=== PATIENT | female | born 1955 | race Caucasian/White ===

== ENCOUNTER 2023-07-01 14:37 | Inpatient (IN) | payer MEDICARE, OTHER ==
[~2023-07-01] VITALS: Ht 162.6 cm; Wt 115.7 kg
[2023-07-01] MEDS ORDERED: FLUT10.62 IH (16:00)
[2023-07-01] MEDS ORDERED: ALBU18HF2 IH (16:00)
[2023-07-01] MEDS ORDERED: BENA20TA9 PO (16:00)
[2023-07-01] MEDS ORDERED: METF-440 PO (16:00)
[2023-07-01] MEDS ORDERED: ZIPR20CA2 (16:00)
[2023-07-01] MEDS ORDERED: CARV6.25 PO (16:00)
[2023-07-01 17:48] VITALS: BP 129/56; TEMP 98.3; O2SAT 94
[2023-07-01] MEDS ORDERED: ZOLPIDEM 5 MG TABLET PO PRN (18:00)
[2023-07-01] MEDS ORDERED: ACETAMINOPHEN 325 MG TABLET PO PRN (18:00)
[2023-07-01] MEDS ORDERED: BLOOD SUGAR DIAGNOSTIC 1 EACH STRIP VI ONE (18:00)
[2023-07-01] MEDS ORDERED: MAG HYDROX/AL HYDROX/SIMETH 30 ML LIQUID UDC PO PRN (18:00)
[2023-07-01] MEDS ORDERED: MAGNESIUM HYDROXIDE 30 ML LIQUID UDC PO PRN (18:00)
[2023-07-01] MEDS: METFORMIN HCL 500 MG TABLET PO SCH (18:09)
[2023-07-01] MEDS: CARVEDILOL 6.25 MG TABLET PO SCH (18:10)
[2023-07-01] MEDS ORDERED: DEXTROSE 50% 50 ML DISP.SYRIN IV PRN (18:30)
[2023-07-01] MEDS: BLOOD SUGAR DIAGNOSTIC 1 EACH STRIP VI SCH (20:06)
[2023-07-01 20:18] VITALS: BP 128/65; TEMP 98.4; O2SAT 94
[2023-07-01] MEDS: LORAZEPAM 0.5 MG TABLET PO PRN (21:34)
[2023-07-02] MEDS: BLOOD SUGAR DIAGNOSTIC 1 EACH STRIP VI SCH ×4 (06:45→20:32)
[2023-07-02 07:20] LABS: BASOPHILS % (AUTO) 0.4 % (0.0-2.0); EOSINOPHILS # (AUTO) 0.1 K/uL (0.0-0.7); HEMATOCRIT 34.5 % (31.2-41.9); HEMOGLOBIN 11.1 g/dL (10.9-14.3); LYMPHOCYTES # (AUTO) 1.7 K/uL (0.8-4.8); MEAN CORPUSCULAR HEMOGLOBIN 28.7 uug (24.7-32.8); MEAN CORPUSCULAR HGB CONC 32 g/dL (32.3-35.6); MEAN CORPUSCULAR VOLUME 89.4 fL (75.5-95.3); MONOCYTES # (AUTO) 0.5 K/uL (0.1-1.30); MONOCYTES % (AUTO) 7.4 % (0.0-11.0); NEUTROPHILS # (AUTO) 4.4 K/uL (1.8-8.9); NEUTROPHILS % (AUTO) 65.2 % (38.5-71.5); PLATELET COUNT (AUTO) 275 K/uL (179-408); RED BLOOD CELL COUNT(AUTO) 3.86 MIL/uL (3.63-4.92); RED CELL DISTRIBUTION WIDTH 14.3 % (12.3-17.7); WHITE BLOOD COUNT (AUTO) 6.8 K/uL (3.8-11.8)
[2023-07-02 07:32] LABS: DIFFERENTIAL COMMENT 1
[2023-07-02] MEDS: CARVEDILOL 6.25 MG TABLET PO SCH ×2 (08:52→17:00)
[2023-07-02] MEDS: METFORMIN HCL 500 MG TABLET PO SCH ×2 (08:52→17:25)
[2023-07-02] MEDS: BENAZEPRIL HCL 20 MG TABLET PO SCH (08:52)
[2023-07-02 10:02] LABS: CALCIUM 8.6 mg/dL (8.5-10.1); CREATININE 0.6 mg/dL (0.6-1.3); POTASSIUM 4.2 mmol/L (3.5-5.1)
[2023-07-02] MEDS: ZIPRASIDONE 20 MG CAPSULE PO SCH ×2 (10:29→20:28)
[2023-07-02 10:46] VITALS: BP 118/64; TEMP 98.2; O2SAT 99
[2023-07-02 15:05] VITALS: O2SAT 98
[2023-07-02] MEDS: ALBUTEROL SULFATE 2.5 MG/3 ML NEBU NEB PRN (15:05)
[2023-07-02 15:18] VITALS: O2SAT 100
[2023-07-02 16:57] VITALS: BP 103/82; TEMP 98; O2SAT 99
[2023-07-02] MEDS: PROTEIN SUPPLEMENT (PROSTAT) 30 ML LIQUID PO SCH (17:25)
[2023-07-02 21:12] VITALS: BP 139/87; TEMP 98; O2SAT 96
[2023-07-03] MEDS: BLOOD SUGAR DIAGNOSTIC 1 EACH STRIP VI SCH ×4 (06:57→20:27)
[2023-07-03 08:00] VITALS: BP 143/77; TEMP 98.3; O2SAT 97
[2023-07-03] MEDS: METFORMIN HCL 500 MG TABLET PO SCH ×2 (08:37→16:37)
[2023-07-03] MEDS: BENAZEPRIL HCL 20 MG TABLET PO SCH (08:37)
[2023-07-03] MEDS: CARVEDILOL 6.25 MG TABLET PO SCH ×2 (08:37→16:34)
[2023-07-03] MEDS: ZIPRASIDONE 20 MG CAPSULE PO SCH ×2 (08:38→20:31)
[2023-07-03] MEDS: PROTEIN SUPPLEMENT (PROSTAT) 30 ML LIQUID PO SCH ×2 (08:39→16:38)
[2023-07-03 15:45] VITALS: BP 139/70; TEMP 97.6; O2SAT 95
[2023-07-03 15:53] VITALS: O2SAT 100
[2023-07-03] MEDS: INSULIN REGULAR, HUMAN 300 UNIT/3 ML VIAL SQ PRN (20:28)
[2023-07-03 21:16] VITALS: BP 128/55; TEMP 98.2; O2SAT 96
[2023-07-04] MEDS: BLOOD SUGAR DIAGNOSTIC 1 EACH STRIP VI SCH ×4 (06:33→20:54)
[2023-07-04 07:51] VITALS: BP 140/75; TEMP 98.1; O2SAT 99
[2023-07-04] MEDS: ZIPRASIDONE 20 MG CAPSULE PO SCH ×2 (08:26→21:02)
[2023-07-04] MEDS: CARVEDILOL 6.25 MG TABLET PO SCH ×2 (08:27→17:17)
[2023-07-04] MEDS: METFORMIN HCL 500 MG TABLET PO SCH ×2 (08:29→17:17)
[2023-07-04] MEDS: PROTEIN SUPPLEMENT (PROSTAT) 30 ML LIQUID PO SCH ×2 (08:29→17:15)
[2023-07-04] MEDS: BENAZEPRIL HCL 20 MG TABLET PO SCH (08:29)
[2023-07-04 09:41] VITALS: O2SAT 98
[2023-07-04] MEDS: ALBUTEROL SULFATE 2.5 MG/3 ML NEBU NEB PRN (09:41)
[2023-07-04 09:51] VITALS: O2SAT 99
[2023-07-04] MEDS: NEOMY/BACITRAC/POLYMI OINT 28.35 GM TUBE TOP SCH ×2 (15:56→21:02)
[2023-07-04 16:29] VITALS: BP 140/85; TEMP 98; O2SAT 99
[2023-07-04 20:00] VITALS: BP 108/58; TEMP 97.7; O2SAT 99
[2023-07-04] MEDS: LORAZEPAM 0.5 MG TABLET PO PRN (21:31)
[2023-07-05] MEDS: BLOOD SUGAR DIAGNOSTIC 1 EACH STRIP VI SCH ×4 (07:30→21:00)
[2023-07-05 08:02] VITALS: BP 161/79; TEMP 98.1; O2SAT 98
[2023-07-05] MEDS: ZIPRASIDONE 20 MG CAPSULE PO SCH ×2 (08:32→20:41)
[2023-07-05] MEDS: METFORMIN HCL 500 MG TABLET PO SCH ×2 (08:33→16:26)
[2023-07-05] MEDS: BENAZEPRIL HCL 20 MG TABLET PO SCH (08:33)
[2023-07-05] MEDS: CARVEDILOL 6.25 MG TABLET PO SCH ×2 (08:34→16:27)
[2023-07-05] MEDS: NEOMY/BACITRAC/POLYMI OINT 28.35 GM TUBE TOP SCH ×2 (08:35→20:42)
[2023-07-05] MEDS: PROTEIN SUPPLEMENT (PROSTAT) 30 ML LIQUID PO SCH ×2 (08:36→16:28)
[2023-07-05 16:12] VITALS: BP 116/62; TEMP 98; O2SAT 99
[2023-07-05 19:47] VITALS: BP 129/63; TEMP 98.1; O2SAT 99
[2023-07-05] MEDS: LORAZEPAM 0.5 MG TABLET PO PRN (20:47)
[2023-07-06] MEDS: BLOOD SUGAR DIAGNOSTIC 1 EACH STRIP VI SCH ×4 (07:30→20:28)
[2023-07-06 07:41] VITALS: BP 150/84; TEMP 97.6; O2SAT 95
[2023-07-06] MEDS: CARVEDILOL 6.25 MG TABLET PO SCH ×2 (08:37→16:27)
[2023-07-06] MEDS: BENAZEPRIL HCL 20 MG TABLET PO SCH (08:37)
[2023-07-06] MEDS: METFORMIN HCL 500 MG TABLET PO SCH ×2 (08:37→16:29)
[2023-07-06] MEDS: ZIPRASIDONE 20 MG CAPSULE PO SCH ×2 (08:37→20:22)
[2023-07-06] MEDS: PROTEIN SUPPLEMENT (PROSTAT) 30 ML LIQUID PO SCH ×2 (08:38→16:29)
[2023-07-06] MEDS: NEOMY/BACITRAC/POLYMI OINT 28.35 GM TUBE TOP SCH ×2 (08:39→20:22)
[2023-07-06 15:00] VITALS: BP 116/53; TEMP 98; O2SAT 94
[2023-07-06 20:14] VITALS: BP 108/60; TEMP 97.8; O2SAT 96
[2023-07-07] MEDS: BLOOD SUGAR DIAGNOSTIC 1 EACH STRIP VI SCH ×4 (06:23→20:34)
[2023-07-07 07:30] VITALS: BP 143/65; TEMP 98.2; O2SAT 96
[2023-07-07] MEDS: INSULIN REGULAR, HUMAN 300 UNIT/3 ML VIAL SQ PRN (08:05)
[2023-07-07] MEDS: METFORMIN HCL 500 MG TABLET PO SCH (08:12)
[2023-07-07] MEDS: BENAZEPRIL HCL 20 MG TABLET PO SCH (08:12)
[2023-07-07] MEDS: CARVEDILOL 6.25 MG TABLET PO SCH ×2 (08:13→17:18)
[2023-07-07] MEDS: NEOMY/BACITRAC/POLYMI OINT 28.35 GM TUBE TOP SCH ×2 (08:13→20:34)
[2023-07-07] MEDS: PROTEIN SUPPLEMENT (PROSTAT) 30 ML LIQUID PO SCH ×2 (08:13→16:09)
[2023-07-07] MEDS: ZIPRASIDONE 20 MG CAPSULE PO SCH ×2 (08:13→20:34)
[2023-07-07 10:15] VITALS: O2SAT 97
[2023-07-07] MEDS: ALBUTEROL SULFATE 2.5 MG/3 ML NEBU NEB PRN (10:15)
[2023-07-07 10:30] VITALS: O2SAT 99
[2023-07-07 15:30] VITALS: BP 120/64; TEMP 98.2; O2SAT 98
[2023-07-07 16:18] LABS: *BILIRUBIN,URIN NEGATIVE (NEGATIVE); *BLOOD, URINE NEGATIVE (NEGATIVE); *CLARITY,URINE CLEAR (CLEAR); *COLOR,URINE YELLOW (YELLOW); *KETONES,URINE NEGATIVE (NEGATIVE); *PROTEIN,URINE NEGATIVE (NEGATIVE); *UROBILINOGEN,URINE 0.2 E.U./dl (NORMAL); LEUKOCYTE ESTERASE ,URINE TRACE (NEGATIVE); NITRITE, URINE NEGATIVE (NEGATIVE); RBC,URINE 0-3 /HPF (0-3); UGLUCOSE NEGATIVE (NEGATIVE)
[2023-07-07] MEDS: PIOGLITAZONE HCL 15 MG TABLET PO SCH (17:18)
[2023-07-07] MEDS: METFORMIN HCL 850 MG TABLET PO SCH (17:18)
[2023-07-07 19:57] VITALS: BP 122/61; TEMP 98.2; O2SAT 96
[2023-07-08] MEDS: BLOOD SUGAR DIAGNOSTIC 1 EACH STRIP VI SCH ×2 (06:56→11:42)
[2023-07-08 07:30] VITALS: BP 119/55; TEMP 97.8; O2SAT 97
[2023-07-08] MEDS: NEOMY/BACITRAC/POLYMI OINT 28.35 GM TUBE TOP SCH ×2 (08:11→20:34)
[2023-07-08] MEDS: BENAZEPRIL HCL 20 MG TABLET PO SCH (08:11)
[2023-07-08] MEDS: METFORMIN HCL 850 MG TABLET PO SCH ×3 (08:11→17:00)
[2023-07-08] MEDS: PIOGLITAZONE HCL 15 MG TABLET PO SCH ×3 (08:11→17:00)
[2023-07-08] MEDS: ZIPRASIDONE 20 MG CAPSULE PO SCH ×2 (08:11→20:33)
[2023-07-08] MEDS: CARVEDILOL 6.25 MG TABLET PO SCH ×2 (08:12→16:55)
[2023-07-08] MEDS: PROTEIN SUPPLEMENT (PROSTAT) 30 ML LIQUID PO SCH ×2 (08:12→16:55)
[2023-07-08] MEDS ORDERED: ZIPRASIDONE 20 MG CAPSULE PO ONE (09:00)
[2023-07-08 15:31] VITALS: O2SAT 98
[2023-07-08] MEDS: ALBUTEROL SULFATE 2.5 MG/3 ML NEBU NEB PRN (15:31)
[2023-07-08 15:45] VITALS: O2SAT 99
[2023-07-08 16:00] VITALS: BP 122/56; TEMP 97.5; O2SAT 96
[2023-07-08 20:41] VITALS: BP 114/71; TEMP 98.4; O2SAT 98
[2023-07-09] VITALS (7 sets, daily range): BP systolic 100–121; BP diastolic 44–66; TEMP 98.4; O2SAT 93–99
[2023-07-09] MEDS: ALBUTEROL SULFATE 2.5 MG/3 ML NEBU NEB PRN ×2 (08:05→19:42)
[2023-07-09] MEDS: METFORMIN HCL 850 MG TABLET PO SCH ×3 (08:52→17:08)
[2023-07-09] MEDS: PIOGLITAZONE HCL 15 MG TABLET PO SCH ×3 (08:53→17:09)
[2023-07-09] MEDS: CARVEDILOL 6.25 MG TABLET PO SCH ×2 (08:53→17:09)
[2023-07-09] MEDS: ZIPRASIDONE 20 MG CAPSULE PO SCH ×3 (08:53→20:51)
[2023-07-09] MEDS: BENAZEPRIL HCL 20 MG TABLET PO SCH (08:54)
[2023-07-09] MEDS: PROTEIN SUPPLEMENT (PROSTAT) 30 ML LIQUID PO SCH ×2 (08:54→17:10)
[2023-07-09] MEDS: NEOMY/BACITRAC/POLYMI OINT 28.35 GM TUBE TOP SCH ×2 (08:55→20:51)
[2023-07-10] MEDS: ALBUTEROL SULFATE 2.5 MG/3 ML NEBU NEB PRN (07:26)
[2023-07-10 07:27] VITALS: O2SAT 96
[2023-07-10 07:42] VITALS: O2SAT 100
[2023-07-10 07:53] VITALS: BP 114/61; TEMP 97.5; O2SAT 95
[2023-07-10] MEDS: METFORMIN HCL 850 MG TABLET PO SCH ×3 (08:17→16:15)
[2023-07-10] MEDS: NEOMY/BACITRAC/POLYMI OINT 28.35 GM TUBE TOP SCH ×2 (08:17→20:40)
[2023-07-10] MEDS: PIOGLITAZONE HCL 15 MG TABLET PO SCH ×3 (08:17→16:16)
[2023-07-10] MEDS: ZIPRASIDONE 20 MG CAPSULE PO SCH ×2 (08:18→20:40)
[2023-07-10] MEDS: CARVEDILOL 6.25 MG TABLET PO SCH ×2 (08:20→16:16)
[2023-07-10] MEDS: PROTEIN SUPPLEMENT (PROSTAT) 30 ML LIQUID PO SCH ×2 (08:41→16:17)
[2023-07-10 15:27] VITALS: BP 120/60; TEMP 97.9; O2SAT 96
[2023-07-10 19:49] VITALS: BP 131/65; TEMP 98; O2SAT 98
[2023-07-11 07:48] VITALS: BP 135/78; TEMP 98.4; O2SAT 96
[2023-07-11] MEDS: PIOGLITAZONE HCL 15 MG TABLET PO SCH ×3 (08:35→17:14)
[2023-07-11] MEDS: ZIPRASIDONE 20 MG CAPSULE PO SCH ×2 (08:35→20:45)
[2023-07-11] MEDS: NEOMY/BACITRAC/POLYMI OINT 28.35 GM TUBE TOP SCH ×2 (08:36→21:00)
[2023-07-11] MEDS: METFORMIN HCL 850 MG TABLET PO SCH ×3 (08:36→17:14)
[2023-07-11] MEDS: CARVEDILOL 6.25 MG TABLET PO SCH ×2 (08:37→17:15)
[2023-07-11] MEDS: PROTEIN SUPPLEMENT (PROSTAT) 30 ML LIQUID PO SCH ×2 (08:42→17:00)
[2023-07-11 10:22] VITALS: O2SAT 97
[2023-07-11] MEDS: ALBUTEROL SULFATE 2.5 MG/3 ML NEBU NEB PRN (10:22)
[2023-07-11 10:32] VITALS: O2SAT 99
[2023-07-11 15:23] VITALS: BP 125/71; TEMP 98.4; O2SAT 96
[2023-07-11] MEDS: GUAIFENESIN SUGAR FREE 100 MG/5 ML UDC PO PRN ×2 (15:43→20:45)
[2023-07-11 20:00] VITALS: BP 131/60; TEMP 97.6; O2SAT 92
[2023-07-11] MEDS: LORAZEPAM 0.5 MG TABLET PO PRN (22:12)
[2023-07-12] MEDS: PANTOPRAZOLE SODIUM 40 MG TABLET.DR PO SCH (06:35)
[2023-07-12 08:42] VITALS: BP 133/69; TEMP 97.9; O2SAT 98
[2023-07-12] MEDS: ZIPRASIDONE 20 MG CAPSULE PO SCH ×2 (08:48→21:06)
[2023-07-12] MEDS: CARVEDILOL 6.25 MG TABLET PO SCH ×2 (08:48→17:26)
[2023-07-12] MEDS: METFORMIN HCL 850 MG TABLET PO SCH ×3 (08:48→17:26)
[2023-07-12] MEDS: PIOGLITAZONE HCL 15 MG TABLET PO SCH ×3 (08:48→17:26)
[2023-07-12] MEDS: PROTEIN SUPPLEMENT (PROSTAT) 30 ML LIQUID PO SCH ×2 (08:50→17:31)
[2023-07-12] MEDS: NEOMY/BACITRAC/POLYMI OINT 28.35 GM TUBE TOP SCH ×2 (08:51→21:10)
[2023-07-12 16:20] VITALS: BP 151/81; TEMP 98; O2SAT 98
[2023-07-12] MEDS: GUAIFENESIN SUGAR FREE 100 MG/5 ML UDC PO PRN ×2 (17:26→21:06)
[2023-07-12 19:54] VITALS: BP 109/63; TEMP 98.2; O2SAT 97
[2023-07-12] MEDS: LORAZEPAM 0.5 MG TABLET PO PRN (22:44)
[2023-07-13] MEDS: PANTOPRAZOLE SODIUM 40 MG TABLET.DR PO SCH (06:38)
[2023-07-13 07:50] VITALS: BP 130/69; TEMP 98.3; O2SAT 98
[2023-07-13] MEDS: ZIPRASIDONE 20 MG CAPSULE PO SCH ×2 (08:50→20:31)
[2023-07-13] MEDS: NEOMY/BACITRAC/POLYMI OINT 28.35 GM TUBE TOP SCH ×2 (08:50→20:30)
[2023-07-13] MEDS: PIOGLITAZONE HCL 15 MG TABLET PO SCH ×3 (08:51→17:05)
[2023-07-13] MEDS: CARVEDILOL 6.25 MG TABLET PO SCH ×2 (08:51→16:36)
[2023-07-13] MEDS: METFORMIN HCL 850 MG TABLET PO SCH ×3 (08:52→17:05)
[2023-07-13] MEDS: PROTEIN SUPPLEMENT (PROSTAT) 30 ML LIQUID PO SCH ×2 (08:52→16:31)
[2023-07-13 16:18] VITALS: BP 117/57; TEMP 98; O2SAT 99
[2023-07-13 19:45] VITALS: BP 128/62; TEMP 98.2; O2SAT 98
[2023-07-14] MEDS: PANTOPRAZOLE SODIUM 40 MG TABLET.DR PO SCH (06:11)
[2023-07-14 07:52] VITALS: BP 114/61; TEMP 98.4; O2SAT 100
[2023-07-14] MEDS: CARVEDILOL 6.25 MG TABLET PO SCH ×2 (08:11→16:46)
[2023-07-14] MEDS: PROTEIN SUPPLEMENT (PROSTAT) 30 ML LIQUID PO SCH ×2 (08:11→16:48)
[2023-07-14] MEDS: METFORMIN HCL 850 MG TABLET PO SCH ×3 (08:11→17:28)
[2023-07-14] MEDS: NEOMY/BACITRAC/POLYMI OINT 28.35 GM TUBE TOP SCH ×2 (08:11→20:38)
[2023-07-14] MEDS: ZIPRASIDONE 20 MG CAPSULE PO SCH ×2 (08:11→20:38)
[2023-07-14] MEDS: PIOGLITAZONE HCL 15 MG TABLET PO SCH ×3 (08:11→17:28)
[2023-07-14 15:49] VITALS: BP 108/51; TEMP 98; O2SAT 96
[2023-07-14 20:03] VITALS: BP 111/56; TEMP 98.2; O2SAT 98
[2023-07-15] MEDS: PANTOPRAZOLE SODIUM 40 MG TABLET.DR PO SCH (07:33)
[2023-07-15 07:47] VITALS: BP 131/61; TEMP 98.2; O2SAT 99
[2023-07-15] MEDS: ZIPRASIDONE 20 MG CAPSULE PO SCH (08:54)
[2023-07-15] MEDS: PIOGLITAZONE HCL 15 MG TABLET PO SCH ×2 (08:54→12:54)
[2023-07-15] MEDS: METFORMIN HCL 850 MG TABLET PO SCH ×2 (08:55→12:54)
[2023-07-15] MEDS: CARVEDILOL 6.25 MG TABLET PO SCH (08:56)
[2023-07-15] MEDS: PROTEIN SUPPLEMENT (PROSTAT) 30 ML LIQUID PO SCH (08:58)
[2023-07-15] MEDS: NEOMY/BACITRAC/POLYMI OINT 28.35 GM TUBE TOP SCH (08:58)
[2023-07-15 15:20] VITALS: BP 124/72; TEMP 98; O2SAT 98
== END 2023-07-15 16:00 | disposition home or self-care (01) | DRG 885 ==
LOC: ER 14:37 → GPS 14:56
PROVIDERS: ADMIT Psychiatry & Neurology Psychiatry; ATTEND Nurse Practitioner Acute Care
DX: F20.0 Paranoid schizophrenia (principal); Z68.41 Body mass index [BMI] 40.0-44.9, adult; G89.4 Chronic pain syndrome; E66.01 Morbid (severe) obesity due to excess calories; E11.9 Type 2 diabetes mellitus without complications; I10 Essential (primary) hypertension; J45.909 Unspecified asthma, uncomplicated; Z79.84 Long term (current) use of oral hypoglycemic drugs
CPT/HCPCS: 36415; 85025; 93005; 94640; 94664; 94760; J1815